=== PATIENT | male | born 1980 | race Caucasian/White ===

== ENCOUNTER 2017-04-08 06:47 | Emergency (ER) | payer BC, OTHER ==
[~2017-04-08] VITALS: Ht 180.3 cm; Wt 114.5 kg
[~2017-04-08 06:47] MED LIST: ATOR10TA9 PO; CETI10TA18 PO; PROP10TA PO
[2017-04-08] MEDS ORDERED: AMPICILLIN/SULBACTAM 3 GM in SODIUM CHLORIDE 0.9% 100 ML IV ONE (08:00)
[2017-04-08 08:14] LABS: BASOPHILS % (AUTO) 1 % (0-1); EOSINOPHILS # (AUTO) 0.04 x10^3/uL (0-0.4); EOSINOPHILS % (AUTO) 0 % (1-7); LYMPHOCYTES # (AUTO) 1.66 x10^3/uL (1-3.4); LYMPHOCYTES % (AUTO) 14 % (22-44); MD NO; MEAN CORPUSCULAR HEMOGLOBIN 32.4 pg (27.5-34.5); MEAN CORPUSCULAR HGB CONC 34.3 g/dL (33.2-36.2); MEAN CORPUSCULAR VOLUME 94.5 fL (81-97); MONOCYTES % (AUTO) 7 % (2-9); NEUTROPHILS % (AUTO) 78 % (42-75); PLATELET COUNT 245 x10^3/uL (130-400); RED BLOOD COUNT 4.79 x10^6/uL (4.38-5.82); RED CELL DISTRIBUTION WIDTH 12.6 % (9.4-14.8)
[2017-04-08 09:11] VITALS: BP 134/78
== END 2017-04-08 09:13 | disposition home or self-care (01) ==
LOC: ED 08:07
DX: L03.221 Cellulitis of neck (principal)
CPT/HCPCS: 36415; 85025; 96365; 99283; J0295

== ENCOUNTER 2017-04-09 05:27 | Inpatient (IN) | payer BC ==
[~2017-04-09] VITALS: Ht 180.3 cm; Wt 109.3 kg
[2017-04-09] MEDS ORDERED: SODIUM CHLORIDE FLUSH 10ML SYR IVF ONE (06:00)
[2017-04-09] MEDS ORDERED: SODIUM CHLORIDE 0.9% 1,000ML IVBOLUS ONE (06:00)
[2017-04-09] MEDS ORDERED: CEFTRIAXONE PMX 1GM/50ML 50 ML IVPB ONE (06:00)
[2017-04-09] MEDS ORDERED: CEFTRIAXONE PMX 1GM/50ML 50 ML ONE (06:07)
[2017-04-09 06:08] LABS: BASOPHILS # (AUTO) 0.05 x10^3/uL (0-0.1); BASOPHILS % (AUTO) 1 % (0-1); EOSINOPHILS # (AUTO) 0.09 x10^3/uL (0-0.4); EOSINOPHILS % (AUTO) 1 % (1-7); LYMPHOCYTES # (AUTO) 1.92 x10^3/uL (1-3.4); LYMPHOCYTES % (AUTO) 17 % (22-44); MD NO; MEAN CORPUSCULAR HEMOGLOBIN 32.5 pg (27.5-34.5); MEAN CORPUSCULAR HGB CONC 34.4 g/dL (33.2-36.2); MEAN CORPUSCULAR VOLUME 94.6 fL (81-97); MONOCYTES # (AUTO) 0.64 x10^3/uL (0.2-0.8); MONOCYTES % (AUTO) 6 % (2-9); NEUTROPHILS # (AUTO) 8.61 x10^3/uL (1.8-6.8); NEUTROPHILS % (AUTO) 76 % (42-75); PLATELET COUNT 236 x10^3/uL (130-400); RED BLOOD COUNT 4.64 x10^6/uL (4.38-5.82); RED CELL DISTRIBUTION WIDTH 12.7 % (9.4-14.8)
[2017-04-09 06:21] LABS: ALBUMIN 3.7 g/dL (3.4-5.0); ANION GAP 10 mmol/L (5-15); CALCIUM 8.7 mg/dL (8.5-10.1); CHLORIDE 102 mmol/L (98-107); CREATININE 0.92 mg/dL (0.7-1.3)
[2017-04-09] MEDS ORDERED: OMNIPAQUE 350 MG/ML, 100ML BOTTLE ONE (06:21)
[2017-04-09] MEDS ORDERED: AMPICILLIN/SULBACTAM 3 GM in SODIUM CHLORIDE 0.9% 100 ML IV ONE (08:00)
[2017-04-09] MEDS ORDERED: HYDROmorphone 1 MG/ML, 1ML IVPush PRN (08:00)
[2017-04-09] MEDS ORDERED: ONDANSETRON 2MG/ML, 2ML IVPush PRN (08:00)
[2017-04-09] MEDS ORDERED: SODIUM CHLORIDE FLUSH 10ML SYR IVF PRN (08:00)
[2017-04-09] MEDS ORDERED: HYDROmorphone 1 MG/ML, 1ML ONE (08:01)
[2017-04-09] MEDS ORDERED: ONDANSETRON 2MG/ML, 2ML ONE (08:01)
[2017-04-09] MEDS ORDERED: VANCOMYCIN PER PHARMACY MC PRN ×2 (09:00→11:00)
[2017-04-09 09:20] VITALS: BP 119/72
[2017-04-09] MEDS ORDERED: VANCOMYCIN 2,200 MG in SODIUM CHLORIDE 0.9% 500 ML IV ONE (10:00)
[2017-04-09] MEDS ORDERED: ACETAMINOPHEN 500 MG TABLET PO PRN (10:30)
[2017-04-09] MEDS ORDERED: LIDOCAINE 1%-EPI 1:100K, 30ML INFIL ONE (10:30)
[2017-04-09] MEDS ORDERED: LIDOCAINE 2%-EPI 1:100K, 30ML INFIL ONE (10:30)
[2017-04-09] MEDS ORDERED: ONDANSETRON 2MG/ML, 2ML IV PRN (10:30)
[2017-04-09] MEDS ORDERED: LIDOCAINE/PF 1%-EPI 1:200K, 30 ML INFIL ONE (10:30)
[2017-04-09] MEDS ORDERED: PHARMACOKINETIC MONITORING MC PRN (11:00)
[2017-04-09] MEDS: VANCOMYCIN 2,200 MG in SODIUM CHLORIDE 0.9% 500 ML IV SCH ×2 (11:22→22:58)
[2017-04-09 12:37] VITALS: BP 119/74
[2017-04-09] MEDS: HYDROmorphone 2MG TABLET PO PRN ×3 (12:48→20:40)
[2017-04-09] MEDS: DIPHENHYDRAMINE 25 MG CAPSULE PO PRN ×2 (14:41→22:59)
[2017-04-09] MEDS: AMPICILLIN/SULBACTAM 3 GM in SODIUM CHLORIDE 0.9% 100 ML IV SCH (16:37)
[2017-04-09] MEDS ORDERED: LIDOCAINE 1%, 10ML INFIL STA (18:18)
[2017-04-09] MEDS ORDERED: SODIUM CHLORIDE 0.9% 1,000 ML IV SCH (19:00)
[2017-04-09 19:26] VITALS: BP 149/72
[2017-04-09] MEDS: SODIUM CHLORIDE FLUSH 10ML SYR IVF SCH (21:00)
[2017-04-10 01:12] VITALS: BP 119/72
[2017-04-10] MEDS: HYDROmorphone 2MG TABLET PO PRN ×4 (01:40→19:51)
[2017-04-10] MEDS: AMPICILLIN/SULBACTAM 3 GM in SODIUM CHLORIDE 0.9% 100 ML IV SCH ×3 (01:40→15:58)
[2017-04-10 08:06] VITALS: BP 106/68
[2017-04-10] MEDS: SODIUM CHLORIDE FLUSH 10ML SYR IVF SCH ×2 (08:11→23:30)
[2017-04-10] MEDS: LISINOPRIL 20 MG TABLET PO SCH (08:11)
[2017-04-10] MEDS: VANCOMYCIN 2,200 MG in SODIUM CHLORIDE 0.9% 500 ML IV SCH ×2 (11:41→23:30)
[2017-04-10] MEDS: DIPHENHYDRAMINE 25 MG CAPSULE PO PRN ×2 (11:46→23:30)
[2017-04-10 12:53] VITALS: BP 105/62
[2017-04-10 20:30] VITALS: BP 106/66
[2017-04-11] MEDS: AMPICILLIN/SULBACTAM 3 GM in SODIUM CHLORIDE 0.9% 100 ML IV SCH ×2 (01:40→09:40)
[2017-04-11] MEDS: HYDROmorphone 2MG TABLET PO PRN (01:40)
[2017-04-11 01:46] VITALS: BP 103/62
[2017-04-11 07:20] VITALS: BP 128/70
[2017-04-11] MEDS: LISINOPRIL 20 MG TABLET PO SCH (09:41)
[2017-04-11] MEDS ORDERED: SULF1TAB24 PO (10:35)
== END 2017-04-11 10:57 | disposition home or self-care (01) | DRG 580 ==
LOC: ED 05:43 → EDIP 07:46 → 3NE 09:22
PROVIDERS: ADMIT Otolaryngology; ATTEND Otolaryngology
PROC: 0W960ZZ Drainage of Neck, Open Approach (ICD-10-PCS; principal; 2017-04-11)
DX: L02.11 Cutaneous abscess of neck (principal); L03.211 Cellulitis of face; I10 Essential (primary) hypertension; Z87.891 Personal history of nicotine dependence; B95.62 Methicillin resistant Staphylococcus aureus infection as the cause of diseases classified elsewhere; Z79.899 Other long term (current) drug therapy
CPT/HCPCS: 36415; 70491; 80048; 80202; 82040; 83605; 85025; 87040; 96365; 96366; 96375; J0295; J0696; J1170; J2405; J3370; Q9967; J7030; J7040; Q0163